=== PATIENT | male | born 1975 | race Caucasian/White ===

== ENCOUNTER → 2024-04-26 09:01 | Outpatient (REF) | payer BC, SELFPAY ==
[2024-04-26 10:29] LABS: % Eosinophils 1.5 % (0-6); % Immature Granulocytes 0.1 % (0-0.5); % Lymphocytes 29.4 % (20.5-51.1); % Monocytes 10.4 % (1.7-9.3); % Neutrophils 57.6 % (42.2-75.2); Absolute Basophils 0.1 10^3/uL (0-0.2); Absolute Eosinophils 0.1 10^3/uL (0-0.7); Absolute Lymphocytes 2.1 10^3/uL (1.2-3.4); Absolute Monocytes 0.7 10^3/uL (0.1-0.6); Absolute Neutrophils 4.1 10^3/uL (1.4-6.5); Hematocrit 45.3 % (39.0-52.0); Hemoglobin 16.1 g/dL (13.0-18.0); Mean Corp Hgb Conc. 35.5 g/dL (33.0-37.0); Mean Corpuscular Hgb 30.6 pg (27.0-31.0); Mean Corpuscular Volume 86.1 fL (80.0-94.0); Mean Platelet Volume 10.5 fL (7.4-10.4); Nucleated Red Blood Cells % 0 % (-); Platelet Count 262 10^3/uL (130-400); Red Blood Cell Count 5.26 10^6/uL (4.70-6.10); White Blood Cell Count 7.1 10^3/uL (4.8-10.8)
[2024-04-26 11:02] LABS: Microalbumin, Random Urine < 0.6 mg/dl (0.6-1.7)
[2024-04-26 11:18] LABS: TSH 2.41 uIU/ml (0.47-4.68)
[2024-04-26 12:23] LABS: ALT (SGPT) 49 U/L (0-50); AST (SGOT) 32 U/L (17-59); Alkaline Phosphatase 58 U/L (38-126); Blood Urea Nitrogen 15 mg/dl (9-20); Calcium 10.2 mg/dl (8.4-10.2); Carbon Dioxide 27 mmol/L (22-30); Chloride 102 mmol/L (98-107); Glucose 152 mg/dl (70-99); HDL Cholesterol 51 mg/dl; LDL Cholesterol, Calculated 169 mg/dl; Potassium 5.4 mmol/L (3.5-5.1); Sodium 141 mmol/L (135-145); Total Bilirubin 0.6 mg/dl (0.2-1.3); Total Cholesterol 266 mg/dl (50-199); Total Protein 7.9 g/dl (6.3-8.2); Triglyceride 234 mg/dl (10-149); Very Low Density Lipoprotein 46 mg/dl (0-30); eGFR > 60.00
[2024-04-27 17:57] LABS: PSA Total 0.5 ng/mL (0.0-4.0)
== END ==
LOC: REG 09:01
PROVIDERS: ATTENDING PHYSICIAN Nurse Practitioner
DX: Z00.00 Encounter for general adult medical examination without abnormal findings (principal); E11.29 Type 2 diabetes mellitus with other diabetic kidney complication; Z12.5 Encounter for screening for malignant neoplasm of prostate; R53.83 Other fatigue; E78.5 Hyperlipidemia, unspecified
CPT/HCPCS: 36415; 80053; 80061; 82043; 83036; 84153; 84154; 84443; 85025